=== PATIENT | female | born 1990 | race Caucasian/White ===

== ENCOUNTER 2019-08-07 18:13 | Emergency (ER) | payer MEDICAID, SELFPAY ==
[2019-08-07 18:43] VITALS: BP 115/81; PULSE 90; RESP 16; TEMP 36.7; O2SAT 99; BMI 32.1
--- NOTE | 2019-08-07 21:01 | ED_ITS ---
Entered by Molly Bangura, acting as scribe for Mike Daigle MD Aug 07, 2019 18:13 HPI - Dental/Oral General: Chief complaint: Dental/Oral Stated complaint: dental pain Time Seen by Provider: 08/07/19 20:48 Source: patient and family Mode of arrival: ambulatory History of Present Illness: HPI Narrative: 29 y/o female presents to the ED with complaint of dental pain. Pt states this is a chronic issue and she has not seen a dentist. She has pain that radiates into her right jaw and makes it difficult for her to smoke. Complaint: tooth pain Duration: constant Severity: moderate Relieving factors: nothing Exacerbating factors: chewing Context: history of dental caries Associated symptoms: Denies fever(s) Treatment prior to arrival: none Review of Systems Const: Denies: fever, chills, body aches or change in appetite Eyes: Denies: blurry vision or eye discomfort ENMT: Reports: dental pain (Right lower); Denies: throat pain Card: Denies: chest pain Resp: Denies: shortness of breath GI: Denies: abdominal pain, nausea, vomiting or diarrhea : Denies: painful urination Musc: Denies: neck pain or back pain Skin/Breast: Denies: rash Neuro: Denies: headache Psych: Denies: depression Mil/Lymph: Denies: easy bruising All/Imm: Denies: hives PFSH ED PFSH: Statuses (acute, chronic, etc) shown below reflect problem list status as previously entered and may not be historically accurate Social History Smoking and tobacco status: current every day smoker Physical Exam Const: COMMON NORMALS: oriented x3 and alert HENMT: COMMON NORMALS: normocephalic and head/scalp atraumatic HEAD & SCALP: normocephalic and atraumatic MOUTH: other (dental pain/tenderness) Eye: COMMON NORMALS: PERRL and EOMs intact bilaterally PUPIL: Yes PERRL Neck/C-Spine: COMMON NORMALS: full ROM and supple Chest: COMMONS NORMALS: inspection of chest normal and palpation of chest normal Resp: COMMON NORMALS: normal respiratory effort, no retractions, no use of accessory muscles and clear to auscultation bilaterally AUSCULTATION: clear to auscultation bilaterally Cardio: COMMON NORMALS: regular rate, regular rhythm and no murmurs RATE: regular rate RHYTHM: regular rhythm GI: COMMON NORMALS: normal to inspection, nondistended, normoactive bowel sounds, soft to palpation, non-tender and no masses PALPATION: Yes soft Extremity: COMMON NORMALS: normal to inspection and full ROM Neuro: COMMON NORMALS: oriented x3, moves all extremities and no focal motor deficits SENSORIUM/ORIENTATION: Yes alert Psych: COMMON NORMALS: mental status grossly normal, thought process normal and cooperative THOUGHT PROCESS: normal thought process Skin: COMMON NORMALS: no rashes or lesions noted and no wounds GENERAL SKIN EXAM: no rashes or lesions noted Course Vital Signs: Vital signs: Vital Signs Temperature 98.9 F 08/07/19 21:54 Pulse Rate 82 08/07/19 21:54 Respiratory Rate 18 08/07/19 21:54 Blood Pressure 109/72 08/07/19 21:54 Pulse Oximetry 96 08/07/19 21:54 MDM - Dental/Oral MDM Narrative: Medical decision making narrative: pt presents here with dental pain. she has no signs of trismus or abscess. pt is stable for discharge and will prescribe clindamycin and naprosyn. She is to follow up with a dentist and is to return if worsening. Discharge Plan Discharge Patient Disposition: Home, Self-Care Clinical Impression: Dental caries Condition: Stable Prescriptions: New EC-Naprosyn 500 mg tablet,delayed release (DR/EC) 500 mg PO BID PRN (Reason: pain) Qty: 20 RF: 0 clindamycin HCl 300 mg capsule 300 mg PO TID 10 Days Qty: 30 RF: 0 Discharge Orders: Discharge Order (Routine); Ordered 08/07/19 Ordered By: Mike Daigle Discharge Diet: Advance as tolerated Discharge Activity: Resume usual activity Patient Instructions: Toothache (ED) Coding Level of Care Code ED Emergency Medical Tech for Chg Fwd The documentation recorded by the Willem perrin Ashley, accurately reflects the service I personally performed and the decisions made by Oxana washington Korby, MD Aug 07, 2019 18:13
--- NOTE | 2019-08-07 21:34 | PC.NURSE ---
Introduced self to patient and initiated vital signs. Pt is A&O x 4 and agreeable. Pt states that the reason for the ER visit today is due to dental pain at right side of mouth. eassured patient of needs and will continue to monitor.
[2019-08-07] MEDS: clindamycin 150 mg Capsule 300 MG PO (21:43)
[2019-08-07 21:54] VITALS: BP 109/72; PULSE 82; RESP 18; TEMP 37.2; O2SAT 96
[2019-08-07] MEDS: HYDROcodone-acetaminophen 7.5-325 mg Tablet 1 TAB PO (21:58)
== END 2019-08-07 22:08 | disposition home or self-care (01) ==
PROVIDERS: Emergency Provider Emergency Medicine
DX: K02.9 Dental caries, unspecified (principal); F17.200 Nicotine dependence, unspecified, uncomplicated
CPT/HCPCS: 99281; 99283

== ENCOUNTER → 2019-09-07 17:14 | Outpatient (BNVA) | payer MEDICAID, SELFPAY | PROVIDERS: Visit Provider Nurse Practitioner Family | DX: J11.1 Influenza due to unidentified influenza virus with other respiratory manifestations (principal); B37.3 Candidiasis of vulva and vagina | CPT/HCPCS: 87804 ==

== ENCOUNTER → 2019-09-20 14:00 | Outpatient (BNVA) | payer MEDICAID, SELFPAY | PROVIDERS: Visit Provider Internal Medicine | DX: B19.20 Unspecified viral hepatitis C without hepatic coma (principal); B18.2 Chronic viral hepatitis C | CPT/HCPCS: 82105; 87522 ==

== ENCOUNTER → 2019-09-27 11:00 | Outpatient (BNVA) | payer MEDICAID, SELFPAY | PROVIDERS: PCP Family Medicine; Referring Provider Family Medicine; Visit Provider Specialist | DX: G56.03 Carpal tunnel syndrome, bilateral upper limbs (principal); F17.210 Nicotine dependence, cigarettes, uncomplicated | CPT/HCPCS: 95910 ==

== ENCOUNTER → 2019-10-23 09:15 | Outpatient (BNVA) | payer MEDICAID, SELFPAY | PROVIDERS: PCP Family Medicine; Visit Provider Family Medicine | DX: Z01.419 Encounter for gynecological examination (general) (routine) without abnormal findings (principal); J30.2 Other seasonal allergic rhinitis; F17.219 Nicotine dependence, cigarettes, with unspecified nicotine-induced disorders | CPT/HCPCS: 88175 ==

== ENCOUNTER 2019-11-08 06:34 | Day surgery (SDC) | payer MEDICAID, SELFPAY ==
[2019-11-07 17:21] VITALS: BMI 32.3
[2019-11-08 06:46] VITALS: BP 125/77; PULSE 91; RESP 18; TEMP 36.4; O2SAT 99
--- NOTE | 2019-11-08 06:53 | W.PM.OPSUD ---
Surgery/Procedure H&P Update DATE OF PROCEDURE: November 08, 2019 DATE H&P PERFORMED: 10/31/19 H&P UPDATE INFORMATION: I have reviewed H&P completed within last 30 days, I have examined patient prior to procedure and No changes to prior documentation PREOP DIAGNOSIS: right carpal tunnel syndrome PRIMARY INDICATION FOR PROCEDURE: as above PLANNED PROCEDURE: Operation Date: 11/08/19 08:10 Proposed Procedures p Right Carpal Tunnel Release, carpal tunnel syndrome 02390/G56.03(Right) - Kadeem Ham DO
--- NOTE | 2019-11-08 06:54 | PM.OP ---
Operative Report Date of procedure: November 08, 2019 Pre-op Diagnosis: right carpal tunnel syndrome Post-op diagnosis: same Procedure Done: Right carpal tunnel release Pathology: none sent Surgeon: Kadeem Ham Anesthesia: MAC and Local Estimated blood loss (mL): 2 Tourniquet time (min): 17 (at 250 mmHg) Complications: No apparent complications Findings: Tight right carpal tunnel Condition: stable Disposition: same day Brief History: 29-year-old white female with symptoms of right carpal tunnel syndrome. Physical exam and electrodiagnostic studies support this diagnosis. Risks, benefits potential complications of carpal tunnel surgery discussed with patient. Risks include aren't limited to failure to relieve all symptoms, possible recurrence, nerve/blood vessel/tendon injury, wound healing complications. All questions answered patient agreeable to proceed with surgery. Procedure: 900 mg Clindamycin Patient identified. Surgical site is signed. Surgical permit signed. Patient received 900 mg of Clindamycin IV for surgical prophylaxis. Patient was taken to the Operating Room. Patient was transferred to the Operating Room table. Patient was placed supine on the OR table. Patient received intravenous sedation. A tourniquet was placed about the upper aspect of the operative limb. Patient was then sterilely prepped and draped in usual fashion. Time out was performed. The area of surgery of the right hand was injected with 10 cc of a 1:1 mixture of 1% lidocaine with epinephrine and 0.25% Marcaine The upper extremity was exsanguinated using an Esmarch bandage and the tourniquet was inflated to 250 mm of Hg pressure. A 4cm palmar incision was made with a #15 blade. Dissection carried down through skin and subcutaneous tissue. We incised the transverse carpal ligament. The transverse carpal ligament was undermined proximally. The wrist was extended and then using a pushing scissors technique, the proximal extent of the transverse carpal ligament was divided. We verified the release was complete. Using scissors technique dissection, we released the distal extent of the transverse carpal ligament and the deep layer of the palmar fascia to the level of the superficial palmar arch. The median nerve was identified as well as the recurrent branch that was preserved. No other pathology noted in the carpal tunnel. Once again, we verified the release was complete. The wound was irrigated with sterile saline containing Betadine and sterile saline containing antibiotic solution. Skin closure was performed with interrupted sutures of 4-0 nylon. Antibiotic ointment was applied to the surgical incision. Sterile dressings were applied. The tourniquet was deflated. A volar plaster splint was applied with an Yury overwrap. The patient was aroused from sedation. Patient was taken to the outpatient surgery area. Patient tolerated the surgery well. All counts were correct.
--- NOTE | 2019-11-08 07:01 | ANES.PREANE2 ---
Pre-Anesthetic Assessment Pre-Anesthetic Assessment: Height/Weight: Height 1.55 m Weight 77.564 kg Temp Pulse Resp BP Pulse Ox 97.5 F L 91 18 125/77 99 11/08/19 06:46 11/08/19 06:46 11/08/19 06:46 11/08/19 06:46 11/08/19 06:46 Preop Diagnosis: right carpal tunnel syndrome Proposed Procedure: Operation Date: 11/08/19 08:10 Proposed Procedures p Right Carpal Tunnel Release, carpal tunnel syndrome 31235/G56.03(Right) - Kadeem Hma, DO Was Beta Ema taken within 24 hours: N/A Last intake: Intake Last Liquid Date 11/07/19 Last Liquid Time 23:59 Last Solid Date 11/07/19 Last Solid Time 23:55 Social: Social History: Tobacco and No alcohol Exam: Pre-Anes Outpt Exam: alert, oriented x 3, clear to auscultation bilaterally and regular rate & rhythm Airway: Submandibular: WNL Cervical ROM: WNL MP: 2 History/ROS: No significant history except as noted Pulmonary: Pulmonary: COPD CV/HEM: Comments: hep C Hepatic: Hepatic: Hepatitis Anesthetic Plan: ASA status: 3 Anesthesia: Anesthesia Evaluation and MAC Risk of > 500 ml blood loss (7ml/kg in children): Yes, adequate IV access and fluids planned PFSH Anesthesia PFSH: Social History Smoking and tobacco status: current every day smoker cigarettes Packs smoked per day: 1 Alcohol intake: former History of recent travel: No Data Anesthesia Cardiac Studies: No Data to Display
[2019-11-08] MEDS: sodium chloride 0.9% 1,000 ML 30 ML IV (07:20)
[2019-11-08] MEDS: clindamycin 900 MG/50 ML PREMIX 100 MG IV (08:04)
[2019-11-08] MEDS: neomycin-poly-bacitracin oint 28 gm 1 APPLIC TOPICAL (08:34)
[2019-11-08 08:46] VITALS: BP 119/72; PULSE 84; RESP 16; TEMP 36.2; O2SAT 99
[2019-11-08 09:01] VITALS: BP 109/61; PULSE 77; RESP 16; TEMP 36.4; O2SAT 99
== END 2019-11-08 09:20 | disposition home or self-care (01) ==
PROVIDERS: PCP Family Medicine; Visit Provider Orthopaedic Surgery
PROC: (CPT 64721; principal; 2019-11-08 08:00)
DX: G56.01 Carpal tunnel syndrome, right upper limb (principal); J44.9 Chronic obstructive pulmonary disease, unspecified; B19.20 Unspecified viral hepatitis C without hepatic coma; F17.210 Nicotine dependence, cigarettes, uncomplicated
CPT/HCPCS: 64721; 12345; J1580; J2001; J2250; J2704; J3010; J3490; J7030

== ENCOUNTER → 2019-11-22 11:00 | Outpatient (BNVA) | payer MEDICAID, SELFPAY | PROVIDERS: PCP Family Medicine; Visit Provider Internal Medicine | DX: B18.2 Chronic viral hepatitis C (principal) | CPT/HCPCS: 87522 ==

== ENCOUNTER 2019-12-14 09:57 | Day surgery (SDC) | payer MEDICAID, SELFPAY ==
[2019-12-13 17:19] VITALS: BMI 33.2
[2019-12-14 10:19] VITALS: BP 115/65; PULSE 79; RESP 18; TEMP 36.8; O2SAT 97
[2019-12-14] MEDS: sodium chloride 0.9% 1,000 ML 30 ML IV (10:29)
--- NOTE | 2019-12-14 10:34 | P.ANESASSM_ITS ---
Pre-Anesthetic Assessment Pre-Anesthetic Assessment: Height/Weight: Height 1.55 m Weight 79.832 kg Temp Pulse Resp BP Pulse Ox 98.3 F 79 18 115/65 97 12/14/19 10:19 12/14/19 10:19 12/14/19 10:19 12/14/19 10:19 12/14/19 10:19 Preop Diagnosis: Left carpal tunnel syndrome Proposed Procedure: Operation Date: 12/14/19 11:35 Proposed Procedures p Carpal Tunnel Release 02349 G56.02(Left) - Kadeem Ham DO Familial anesthetic complications: None Was Beta Ema taken within 24 gautam rs: N/A Last intake: Intake Last Liquid Date 12/13/19 Last Liquid Time 23:59 Last Solid Date 12/13/19 Last Solid Time 23:59 Social: Social History: Tobacco, No alcohol and No tobacco Comment: on suboxone for pain pill addiction - Still on suboxone Exam: Pre-Anes Outpt Exam: alert, oriented x 3, clear to auscultation bilaterally and regular rate & rhythm Airway: Cervical ROM: WNL MP: 3 Dentition: Full Pulmonary: Pulmonary: COPD CV/HEM: CV/HEM: None reported : : None reported Comments: hx ARF last year probably due to drug use Hepatic: Hepatic: Hepatitis (Hep C took epclusa) GI: GI: None reported Metabolic: Metabolic: None reported Musc/skel: Musc/skel: None reported Neuropsych: Neuropsych: Neuropathy and Seizure (Not on medications - last episodes 1.5 years ago (unknown etiology)) Comments: induced by strobe lights Anesthetic Plan: ASA status: 2 Anesthesia: MAC and Regional (specify below) Other: francine Risk of > 500 ml blood loss (7ml/kg in children): No Meds/Allergies Current Medications: Current Medications Generic Name Dose Route Start Last Admin Trade Name Freq PRN Reason Stop Dose Admin Sodium Chloride 1,000 mls @ 30 ml s/hr 12/14/19 10:15 12/14/19 10:29 Sodium Chloride 0.9% IV 12/15/19 10:14 30 mls/hr .Q24H NIC Administration PFSH Anesthesia PFSH: Medical History COPD (chronic obstructive pulmonary disease) Fibromyalgia Hepatitis C Seizures Surgical History H/O section H/O tubal ligation H/O: hysterectomy due to cervical / uterine / ovarian cancer History of appendectomy History of cholecystectomy Family History Other Hypertension Seizure disorder Thyroid condition Social History Smoking and tobacco status: current every day smoker cigarettes Packs smoked per day: 1 Alcohol intake: former History of recent travel: No Data Anesthesia Cardiac Studies: No Data to Display
--- NOTE | 2019-12-14 11:25 | W.PM.OPSUD ---
Surgery/Procedure H&P Update DATE OF PROCEDURE: December 14, 2019 DATE H&P PERFORMED: 12/10/19 H&P UPDATE INFORMATION: I have reviewed H&P completed within last 30 days, I have examined patient prior to procedure and No changes to prior documentation PREOP DIAGNOSIS: Left carpal tunnel syndrome PRIMARY INDICATION FOR PROCEDURE: as above PLANNED PROCEDURE: Operation Date: 12/14/19 11:35 Proposed Procedures p Carpal Tunnel Release 26947 G56.02(Left) - Kadeem Ham DO
--- NOTE | 2019-12-14 11:25 | PM.OP ---
Operative Report Date of procedure: December 14, 2019 Pre-op Diagnosis: Left carpal tunnel syndrome Post-op diagnosis: same Procedure Done: left carpal tunnel release Pathology: none sent Surgeon: Kadeem Ham Anesthesia: MAC and Local Estimated blood loss (mL): 2 Tourniquet time (min): 16 Tourniquet time: 250 mmHg pressure Complications: no apparent complications Findings: tight left carpal tunel Brief History: 29-year-old white female with complaints of paresthesias in the median nerve distribution of the left upper extremity with wrist pain. Physical examination and electrodiagnostic studies are consistent with carpal tunnel syndrome. Patient has failed conservative treatment. Risks, benefits and potential complications of carpal tunnel surgery discussed the patient. Risks of surgery include but aren't limited to: Failure to relieve all symptoms, infection, nerve/blood vessel/tendon injury. Medical complications can include blood clots, heart attack, stroke, and risks up to and including . All questions were answered patient agreeable to proceed with surgery. Procedure: clindamycin 600 mg IV Patient identified. Surgical site is signed. Surgical permit signed. Patient received 600 mg of Clindamycin IV for surgical prophylaxis. Patient was taken to the Operating Room. Patient was transferred to the Operating Room table. Patient was placed supine on the OR table. Patient received intravenous sedation. Time out was performed. The area of surgery of the left hand was injected with 10 cc of a 1:1 mixture of 1% lidocaine with epinephrine and 0.5% Marcaine. A tourniquet was placed about the upper aspect of the operative limb. Patient was then sterilely prepped and draped in usual fashion. The upper extremity was exsanguinated using an Esmarch bandage and the tourniquet was inflated to 250 mm of Hg pressure. A 4cm palmar incision was made with a #15 blade. Dissection carried down through skin and subcutaneous tissue. We incised the transverse carpal ligament. The transverse carpal ligament was undermined proximally. The wrist was extended and then using a pushing scissors technique, the proximal extent of the transverse carpal ligament was divided. We verified the release was complete. Using scissors technique dissection, we released the distal extent of the transverse carpal ligament and the deep layer of the palmar fascia to the level of the superficial palmar arch. The median nerve was identified as well as the recurrent branch that was preserved. No other pathology noted in the carpal tunnel. Once again, we verified the release was complete. The wound was irrigated with sterile saline containing Betadine and sterile saline containing antibiotic solution. Skin closure was performed with interrupted sutures of 4-0 nylon. Antibiotic ointment was applied to the surgical incision. Sterile dressings were applied. The tourniquet was deflated. A volar plaster splint was applied with an Yury overwrap. The patient was aroused from sedation. Patient was taken to the outpatient surgery area. Patient tolerated the surgery well. All counts were correct.
[2019-12-14] MEDS: cefUROXime 1,500 MG in sodium chloride 0.9% (plus) 50 ML 100 MG IV (11:36)
[2019-12-14] MEDS: neomycin-poly-bacitracin oint 28 gm 1 APPLIC TOPICAL (12:13)
[2019-12-14 12:29] VITALS: BP 106/75; PULSE 88; RESP 16; TEMP 36.1; O2SAT 100
[2019-12-14 13:02] VITALS: BP 110/74; PULSE 74; RESP 18; TEMP 36.3; O2SAT 100
== END 2019-12-14 13:10 | disposition home or self-care (01) ==
PROVIDERS: PCP Family Medicine; Visit Provider Orthopaedic Surgery
PROC: (CPT 64721; principal; 2019-12-14 11:35)
DX: G56.02 Carpal tunnel syndrome, left upper limb (principal); J44.9 Chronic obstructive pulmonary disease, unspecified; Z86.19 Personal history of other infectious and parasitic diseases; M79.7 Fibromyalgia; F17.210 Nicotine dependence, cigarettes, uncomplicated
CPT/HCPCS: 64721; 12345; J0697; J1580; J2001; J2704; J3010; J3490; J7030

== ENCOUNTER 2020-04-21 20:00 | Outpatient (CLI) | payer MEDICAID, SELFPAY | END 2020-04-21 20:01 | disposition home or self-care (01) | LOC: SLEEP 04-22 09:10 | PROVIDERS: PCP Family Medicine; Visit Provider Nurse Practitioner Family | DX: G47.10 Hypersomnia, unspecified (principal) | CPT/HCPCS: 95810 ==

== ENCOUNTER → 2020-05-16 18:54 | Outpatient (BNVA) | payer MEDICAID, SELFPAY | PROVIDERS: PCP Family Medicine; Visit Provider Emergency Medicine | DX: J02.9 Acute pharyngitis, unspecified (principal); R11.0 Nausea | CPT/HCPCS: 87071; 87880 ==

== ENCOUNTER 2020-06-07 15:48 | Inpatient (IN) | payer MEDICAID, SELFPAY ==
[2020-06-07] VITALS (8 sets, daily range): BP systolic 109–132; BP diastolic 65–91; PULSE 84–108; RESP 18–20; TEMP 36.9–37.2; O2SAT 94–100; BMI 34.0
--- NOTE | 2020-06-07 17:17 | W.ED.FEMALGU ---
Documented by User: Cj Sotelo DO 06/08/20 06:19 HPI - Female Genitourinary General: Chief complaint: Urogenital-Female Stated complaint: mid back pain Time Seen by Provider: 06/07/20 16:49 History of Present Illness: HPI Narrative: 29-year-old female comes complaining of bilateral flank pain for the last week. She has had temp at home up to 100.43 for which she is taken several doses of Tylenol today. She has had nausea and vomiting along with a fever she denies any hematuria. She is previously a hysterectomy no potential that she is . She denies history of renal stones but has had a history of previous pyelonephritis and has chronic kidney disease. He reports having a previous hospitalization for acute kidney disease. She was hospitalized for approximately 3 weeks MD elicited complaint: dysuria, UTI and flank pain Pertinent past history: recurrent UTIs and pyelonephritis Onset (ago): week(s) (1) Severity: severe Female Urogenital Radiation: L Flank and R Flank Severity scale (1-10): 10 Quality of pain: cramping and sharp Consistency: intermittent Vaginal discharge: none Vaginal bleeding: none Urinary symptoms: Flank Pain Exacerbating factors: movement and palpation Relieving factors: none Associated symptoms: Reports abdominal pain and fevers/chills; Deny short of breath, headache(s), nausea, rash, seizures, syncope, vaginal bleeding, vaginal discharge or weakness Treatment prior to arrival: acetaminophen Review of Systems Const: Reports: fever(s), chills, body aches and fatigue; Denies: change in appetite or malaise ENMT: Denies: throat pain, ear or mastoid pain, nasal discharge or nasal congestion Card: Denies: syncope Resp: Denies: dyspnea, productive cough or non-productive cough GI: Reports: abdominal pain; Denies: nausea : Reports: flank pain and dysuria; Denies: vaginal discharge Skin/Breast: Denies: rash or pruritus Neuro: Denies: headache(s) [facility], [facility] PFSH: Medical History (Updated 06/08/20 @ 01:05 by Gerardo Rico MD) COPD (chronic obstructive pulmonary disease) Fibromyalgia Hepatitis C Seizures Surgical History H/O section H/O tubal ligation H/O: hysterectomy due to cervical / uterine / ovarian cancer History of appendectomy History of cholecystectomy S/p bilateral carpal tunnel release Family History Other Hypertension Seizure disorder Thyroid condition Social History Smoking and tobacco status: current every day smoker cigarettes Packs smoked per day: 1 Alcohol intake: former History of recent travel: No Physical Exam Const: COMMON NORMALS: no acute distress GENERAL APPEARANCE: cooperative and comfortable ORIENTATION/CONSCIOUSNESS: Yes awake, Yes oriented to person, Yes oriented to place and Yes oriented to time HENMT: COMMON NORMALS: normocephalic, atraumatic and hearing grossly normal bilaterally HEAD & SCALP: normocephalic and atraumatic Neck/C-Spine: COMMON NORMALS: no JVD Resp: COMMON NORMALS: normal respiratory effort, No retractions, No use of accessory muscles and clear to auscultation bilaterally AUSCULTATION: clear to auscultation bilaterally Cardio: COMMON NORMALS: no JVD, regular rate, regular rhythm and No murmurs present (Cardio) RATE: regular rate RHYTHM: regular rhythm GI: COMMON NORMALS: Soft to palpation and No hepatosplenomegaly present AUSCULTATION: Yes normoactive bowel sounds PALPATION: Yes Soft to palpation, No Tenderness to palpation present (GI), No Guarding due to palpation present (GI) and Yes No hepatosplenomegaly present : BLADDER/KIDNEY EXAM: Yes CVA tenderness (10/10) SPECULUM EXAM - VAGINA: No vaginal bleeding OB/EXTERNAL & SPECULUM: No vaginal bleeding Back/Pelvis: GENERAL BACK: Yes CVA tenderness (10/10) CVA tenderness: bilateral Extremity: COMMON NORMALS: normal to inspection, capillary refill normal, no clubbing, cyanosis or edema, no calf tenderness and no pedal edema Neuro: SENSORIUM/ORIENTATION: Yes oriented to person, Yes oriented to place and Yes oriented to time Skin: COMMON NORMALS: no rashes or lesions noted GENERAL SKIN EXAM: no rashes or lesions noted Course Vital Signs: Vital signs: Vital Signs Temperature 98.2 F 06/08/20 04:00 Pulse Rate 91 06/08/20 04:00 Respiratory Rate 20 H 06/08/20 04:57 Blood Pressure 106/66 06/08/20 04:00 Pulse Oximetry 94 06/08/20 04:00 MDM - Female MDM Narrative: Medical decision making narrative: Care turned over to Dr. Ansari at change of shift. See his note for final diagnosis and disposition Lab Data: Labs: Lab Results 06/07/20 06/07/20 06/07/20 Range/Units 16:58 17:16 18:55 WBC (4.0-10.0) 10^3/ uL RBC (4.1-5.3) 10^6/u L Hgb (11.5-15.3) g/dL Hct (37.0-47.0) % MCV (81-99) fL MCH (28.0-34.0) pg MCHC (30.0-36.0) g/dL RDW (12.1-15.1) % Plt Count (130-400) 10^3/c mm MPV (7.4-10.4) fL Neut % (Auto) % Lymph % (Auto) % [place] % (Auto) % Eos % (Auto) % Baso % (Auto) % Neut # (Auto) (1.8-7.7) 10^3/u L Lymph # (Auto) (0.8-4.8) 10^3/u L [place] # (Auto) (0.2-0.9) 10^3/u L Eos # (Auto) (0.0-0.8) 10^3/u L Baso # (Auto) (0.0-0.1) 10^3/u L Nucleated RBC % (a uto) % Nucleated RBCs # /100WBC Sodium 135 L (136-145) mmol/L Potassium 3.7 (3.5-5.1) mmol/L Chloride 101 (98-107) mmol/L Carbon Dioxide 25 (22-29) mmol/L Anion Gap 12.7 (5-19) BUN 7 (6-20) mg/dL Creatinine 0.7 (0.5-0.9) mg/dL GFR Calculation 98.9 (90-130) mL/min Glucose 107 (65-115) mg/dL Calculated Osmolal ity 278 L (285-295) mOsm/k g Lactic Acid 0.7 (0.5-2.2) mmol/L Calcium 8.7 (8.5-10.5) mg/dL Total Bilirubin 0.4 (0.15-1.2) mg/dL AST 13 (0-32) U/L ALT 8 (0-33) U/L Alkaline Phosphata se 83 (35-105) IU/L Total Protein 7.1 (6.6-8.7) g/dL Albumin 4.5 (3.5-5.2) g/dL Globulin 2.6 (1.3-4.6) g/dL Urine Color Straw (Yellow) Urine Appearance Hazy A (CLEAR) Urine pH 8 H (5-7) Ur Specific Gravit y 1.010 (1.005-1.030) Urine Protein Neg (Negative) Urine Glucose (UA) Norm (Normal) Urine Ketones Negative (Negative) Urine Blood Trace H (Negative) Urine Nitrate Negative (Negative) Urine Bilirubin Neg (Negative) Urine Urobilinogen Norm (Negative) mg/dL Ur Leukocyte Alyssa ase 2+ H (Negative) Urine RBC 0-4 H (0-2) /hpf Urine WBC 40-55 H (0-5) /hpf Ur Squamous Epith Cells 0-4 H (0-5) /hpf Amorphous Sediment Not Reportable Urine Bacteria 2+ H (NONE) /hpf 06/07/20 Range/Units 18:55 WBC 16.3 H (4.0-10.0) 10^3/ uL RBC 4.30 (4.1-5.3) 10^6/u L Hgb 13.3 (11.5-15.3) g/dL Hct 38.8 (37.0-47.0) % MCV 90.2 (81-99) fL MCH 30.9 (28.0-34.0) pg MCHC 34.3 (30.0-36.0) g/dL RDW 12.0 L (12.1-15.1) % Plt Count 219 (130-400) 10^3/c mm MPV 10.1 (7.4-10.4) fL Neut % (Auto) 69.6 % Lymph % (Auto) 20.0 % Medina % (Auto) 9.1 % Eos % (Auto) 0.6 % Baso % (Auto) 0.1 % Neut # (Auto) 11.32 H (1.8-7.7) 10^3/u L Lymph # (Auto) 3.3 (0.8-4.8) 10^3/u L Medina # (Auto) 1.5 H (0.2-0.9) 10^3/u L Eos # (Auto) 0.1 (0.0-0.8) 10^3/u L Baso # (Auto) 0.0 (0.0-0.1) 10^3/u L Nucleated RBC % (a uto) 0 % Nucleated RBCs # 0.0 /100WBC Sodium (136-145) mmol/L Potassium (3.5-5.1) mmol/L Chloride (98-107) mmol/L Carbon Dioxide (22-29) mmol/L Anion Gap (5-19) BUN (6-20) mg/dL Creatinine (0.5-0.9) mg/dL GFR Calculation (90-130) mL/min Glucose (65-115) mg/dL Calculated Osmolal ity (285-295) mOsm/k g Lactic Acid (0.5-2.2) mmol/L Calcium (8.5-10.5) mg/dL Total Bilirubin (0.15-1.2) mg/dL AST (0-32) U/L ALT (0-33) U/L Alkaline Phosphata se (35-105) IU/L Total Protein (6.6-8.7) g/dL Albumin (3.5-5.2) g/dL Globulin (1.3-4.6) g/dL Urine Color (Yellow) Urine Appearance (CLEAR) Urine pH (5-7) Ur Specific Gravit y (1.005-1.030) Urine Protein (Negative) Urine Glucose (UA) (Normal) Urine Ketones (Negative) Urine Blood (Negative) Urine Nitrate (Negative) Urine Bilirubin (Negative) Urine Urobilinogen (Negative) mg/dL Ur Leukocyte Alyssa ase (Negative) Urine RBC (0-2) /hpf Urine WBC (0-5) /hpf Ur Squamous Epith Cells (0-5) /hpf Amorphous Sediment Urine Bacteria (NONE) /hpf Discharge Plan Discharge Patient Disposition: Placed in Observation Admit Provider: Gerardo Rico Clinical Impression: Pyelonephritis Vomiting Qualifiers: Vomiting type: unspecified Vomiting Intractability: unspecified Nausea presence: with nausea Qualified Code(s): R11.2 - Nausea with vomiting, unspecified Coding Level of Care Code ED Termite Control Technician for Chg Fwd Exam Comprehensive Documented by User: Matti Ansari DO 06/07/20 20:57 HPI - Female Genitourinary General: Chief complaint: Urogenital-Female Stated complaint: mid back pain Time Seen by Provider: 06/07/20 16:49 PFSH ED PFSH: Medical History (Updated 06/08/20 @ 01:05 by Gerardo Rico MD) COPD (chronic obstructive pulmonary disease) Fibromyalgia Hepatitis C Seizures Surgical History H/O section H/O tubal ligation H/O: hysterectomy due to cervical / uterine / ovarian cancer History of appendectomy History of cholecystectomy S/p bilateral carpal tunnel release Family History Other Hypertension Seizure disorder Thyroid condition Social History Smoking and tobacco status: current every day smoker cigarettes Packs smoked per day: 1 Alcohol intake: former History of recent travel: No Course Vital Signs: Vital signs: Vital Signs Temperature 98.2 F 06/08/20 04:00 Pulse Rate 91 06/08/20 04:00 Respiratory Rate 20 H 06/08/20 04:57 Blood Pressure 106/66 06/08/20 04:00 Pulse Oximetry 94 06/08/20 04:00 MDM - Female MDM Narrative: Medical decision making narrative: 29-year-old female checked out to me by Dr. Sotelo at shift change. This lady has a previous history of pyelonephritis causing renal failure, and an ICU stay. She presents with fever, bilateral flank pain, and some dysuria. She has a urinary tract infection by urinalysis. Her white blood cell count is 16.3. Her creatinine is 0.7 today. Renal ultrasound is normal showing no hydronephrosis or evidence of significant pyelonephritic change, or abscess she will be observed given the fact that she is vomiting and may not hold on antibiotics at home. Lab Data: Labs: Lab Results 06/07/20 06/07/20 06/07/20 Range/Units 16:58 17:16 18:55 WBC (4.0-10.0) 10^3/ uL RBC (4.1-5.3) 10^6/u L Hgb (11.5-15.3) g/dL Hct (37.0-47.0) % MCV (81-99) fL MCH (28.0-34.0) pg MCHC (30.0-36.0) g/dL RDW (12.1-15.1) % Plt Count (130-400) 10^3/c mm MPV (7.4-10.4) fL Neut % (Auto) % Lymph % (Auto) % [place] % (Auto) % Eos % (Auto) % Baso % (Auto) % Neut # (Auto) (1.8-7.7) 10^3/u L Lymph # (Auto) (0.8-4.8) 10^3/u L [place] # (Auto) (0.2-0.9) 10^3/u L Eos # (Auto) (0.0-0.8) 10^3/u L Baso # (Auto) (0.0-0.1) 10^3/u L Nucleated RBC % (a uto) % Nucleated RBCs # /100WBC Sodium 135 L (136-145) mmol/L Potassium 3.7 (3.5-5.1) mmol/L Chloride 101 (98-107) mmol/L Carbon Dioxide 25 (22-29) mmol/L Anion Gap 12.7 (5-19) BUN 7 (6-20) mg/dL Creatinine 0.7 (0.5-0.9) mg/dL GFR Calculation 98.9 (90-130) mL/min Glucose 107 (65-115) mg/dL Calculated Osmolal ity 278 L (285-295) mOsm/k g Lactic Acid 0.7 (0.5-2.2) mmol/L Calcium 8.7 (8.5-10.5) mg/dL Total Bilirubin 0.4 (0.15-1.2) mg/dL AST 13 (0-32) U/L ALT 8 (0-33) U/L Alkaline Phosphata se 83 (35-105) IU/L Total Protein 7.1 (6.6-8.7) g/dL Albumin 4.5 (3.5-5.2) g/dL Globulin 2.6 (1.3-4.6) g/dL Urine Color Straw (Yellow) Urine Appearance Hazy A (CLEAR) Urine pH 8 H (5-7) Ur Specific Gravit y 1.010 (1.005-1.030) Urine Protein Neg (Negative) Urine Glucose (UA) Norm (Normal) Urine Ketones Negative (Negative) Urine Blood Trace H (Negative) Urine Nitrate Negative (Negative) Urine Bilirubin Neg (Negative) Urine Urobilinogen Norm (Negative) mg/dL Ur Leukocyte Alyssa ase 2+ H (Negative) Urine RBC 0-4 H (0-2) /hpf Urine WBC 40-55 H (0-5) /hpf Ur Squamous Epith Cells 0-4 H (0-5) /hpf Amorphous Sediment Not Reportable Urine Bacteria 2+ H (NONE) /hpf 06/07/ Range/Units 18:55 WBC 16.3 H (4.0-10.0) 10^3/ uL RBC 4.30 (4.1-5.3) 10^6/u L Hgb 13.3 (11.5-15.3) g/dL Hct 38.8 (37.0-47.0) % MCV 90.2 (81-99) fL MCH 30.9 (28.0-34.0) pg MCHC 34.3 (30.0-36.0) g/dL RDW 12.0 L (12.1-15.1) % Plt Count 219 (130-400) 10^3/c mm MPV 10.1 (7.4-10.4) fL Neut % (Auto) 69.6 % Lymph % (Auto) 20.0 % [place] % (Auto) 9.1 % Eos % (Auto) 0.6 % Baso % (Auto) 0.1 % Neut # (Auto) 11.32 H (1.8-7.7) 10^3/u L Lymph # (Auto) 3.3 (0.8-4.8) 10^3/u L Medina # (Auto) 1.5 H (0.2-0.9) 10^3/u L Eos # (Auto) 0.1 (0.0-0.8) 10^3/u L Baso # (Auto) 0.0 (0.0-0.1) 10^3/u L Nucleated RBC % (a uto) 0 % Nucleated RBCs # 0.0 /100WBC Sodium (136-145) mmol/L Potassium (3.5-5.1) mmol/L Chloride (98-107) mmol/L Carbon Dioxide (22-29) mmol/L Anion Gap (5-19) BUN (6-20) mg/dL Creatinine (0.5-0.9) mg/dL GFR Calculation (90-130) mL/min Glucose (65-115) mg/dL Calculated Osmolal ity (285-295) mOsm/k g Lactic Acid (0.5-2.2) mmol/L Calcium (8.5-10.5) mg/dL Total Bilirubin (0.15-1.2) mg/dL AST (0-32) U/L ALT (0-33) U/L Alkaline Phosphata se (35-105) IU/L Total Protein (6.6-8.7) g/dL Albumin (3.5-5.2) g/dL Globulin (1.3-4.6) g/dL Urine Color (Yellow) Urine Appearance (CLEAR) Urine pH (5-7) Ur Specific Gravit y (1.005-1.030) Urine Protein (Negative) Urine Glucose (UA) (Normal) Urine Ketones (Negative) Urine Blood (Negative) Urine Nitrate (Negative) Urine Bilirubin (Negative) Urine Urobilinogen (Negative) mg/dL Ur Leukocyte Alyssa ase (Negative) Urine RBC (0-2) /hpf Urine WBC (0-5) /hpf Ur Squamous Epith Cells (0-5) /hpf Amorphous Sediment Urine Bacteria (NONE) /hpf Discharge Plan Discharge Patient Disposition: Placed in Observation Admit Provider: Gerardo Rico Clinical Impression: Pyelonephritis Vomiting Qualifiers: Vomiting type: unspecified Vomiting Intractability: unspecified Nausea presence: with nausea Qualified Code(s): R11.2 - Nausea with vomiting, unspecified Coding Level of Care Code ED Termite Control Technician for Chg Fwd Exam Comprehensive
[2020-06-07 17:39] LABS: Add Urine Culture? Yes; Add Urine Microscopic? YES; Bacteria Urine 2+ /hpf; Bilirubin Urine Neg (Negative); Blood Urine Trace (Negative); Glucose Urine UA Norm (Normal); Ketones Urine Negative (Negative); Leukocyte Esterase Urine 2+ (Negative); Nitrate Urine Negative (Negative); Protein Urine Neg (Negative); RBC Urine 0-4 /hpf (0-2); Squamous Epithelial Cell Urine 0-4 /hpf (0-5); Urine Appearance Hazy (CLEAR); Urine Color Straw (Yellow); Urobilinogen Urine Norm (Negative); WBC Urine 40-55 /hpf (0-5); pH Urine 8 (5-7)
--- NOTE | 2020-06-07 18:30 | USR_ITS ---
PROCEDURE INFORMATION: Exam: US Retroperitoneal; Complete; Kidneys and Bladder Exam date and time: 06/07/2020 7:36 PM Age: 29 years old Clinical indication: Abdominal pain; Additional info: Pyelonephritis TECHNIQUE: Imaging protocol: Real-time ultrasound of the retroperitoneum with image documentation. Complete exam focused on the kidneys and bladder. COMPARISON: US gall bladder [id number] 09/22/2014 7:32 AM FINDINGS: Right kidney: Normal. No stones. No hydronephrosis. The right kidney measures 11.6 cm in length. The echotexture of the kidney is appropriate. No perinephric fluid. Left kidney: Normal. No stones. No hydronephrosis. The left kidney measures 11.5 cm in length. The echotexture of the kidney is appropriate. No perinephric fluid. Urinary bladder: Unremarkable. US/US renal BI* [id number] IMPRESSION: Unremarkable kidneys and bladder.
[2020-06-07] MEDS: ondansetron 2 mg/ML SDV 2 mL 4 MG IVP (19:04)
[2020-06-07] MEDS: morphine 4 mg/mL SDV 1 mL 6 MG IVP (19:05)
[2020-06-07 19:08] LABS: Basophils % 0.1 %; Eosinophils # 0.1 10^3/uL (0.0-0.8); Eosinophils % 0.6 %; Hematocrit 38.8 % (37.0-47.0); Hemoglobin 13.3 g/dL (11.5-15.3); Lymphocytes # 3.3 10^3/uL (0.8-4.8); Mean Corpuscular HGB Conc 34.3 g/dL (30.0-36.0); Mean Corpuscular Hemoglobin 30.9 pg (28.0-34.0); Mean Corpuscular Volume 90.2 fL (81-99); Mean Platelet Volume 10.1 fL (7.4-10.4); Monocytes # 1.5 10^3/uL (0.2-0.9); Monocytes % 9.1 %; Neutrophils # 11.32 10^3/uL (1.8-7.7); Neutrophils % 69.6 %; Nucleated Red Blood Cells % 0 %; Platelet Count 219 10^3/cmm (130-400); White Blood Count 16.3 10^3/uL (4.0-10.0)
[2020-06-07] MEDS: cefTRIAXone 2,000 MG in sodium chloride 0.9% (plus) 50 ML 100 MG IV (19:12)
[2020-06-07] MEDS: sodium chloride 0.9% 1,000 ML 999 ML IV (19:12)
--- NOTE | 2020-06-07 19:23 | PC.NURSE ---
report from ELGIN Sanon. UA/Lab in process with medication given
[2020-06-07 19:30] LABS: Lactic Sepsis W/Reflex 0.7 mmol/L (0.5-2.2)
[2020-06-07 19:35] LABS: Alanine Aminotransferase 8 U/L (0-33); Albumin Level 4.5 g/dL (3.5-5.2); Alkaline Phosphatase 83 IU/L (35-105); Anion Gap 12.7 (5-19); Aspartate Amino Transferase 13 U/L (0-32); Blood Urea Nitrogen 7 mg/dL (6-20); Calcium 8.7 mg/dL (8.5-10.5); Carbon Dioxide 25 mmol/L (22-29); Chloride 101 mmol/L (98-107); Globulin 2.6 g/dL (1.3-4.6); Glomerular Filtration Rate 98.9 mL/min (90-130); Glucose 107 mg/dL (65-115); Osmolality Calculated 278 mOsm/kg (285-295); Potassium 3.7 mmol/L (3.5-5.1); Sodium 135 mmol/L (136-145); Total Bilirubin 0.4 mg/dL (0.15-1.2); Total Protein 7.1 g/dL (6.6-8.7)
[2020-06-07] MEDS: morphine 4 mg/mL SDV 1 mL IVP ×2 (20:43→23:10)
--- NOTE | 2020-06-07 21:56 | PM.HP ---
Providers/Chief Complaint Admitting Physician: Gerardo Rico MD Primary Care Provider: Jenna Flores DO Chief Complaint: mid back pain History of Present Illness Eleonora White is a 29 year old female with past medical history of renal calculi and complicated with pyelonephritis came in with chief complaint of left flank pain as well nausea and multiple episodes of vomiting along with documented fever at home, several rounds of Tylenol for fever. symptoms are going on for last 3 days.According to her pain as well as nausea and vomiting worsen with movement. She has no urinary complaint. Denies any Shortness of breath, cough, headache, sick contact. Upon arrival in the ER she was worked up for flank pain. Imaging studies: Renal ultrasound : Unremarkable kidneys and bladder. Right kidney: Normal. No stones. No hydronephrosis. The right kidney measures 11.6 cm in length. The echotexture of the kidney is appropriate. No perinephric fluid. Left kidney: Normal. No stones. No hydronephrosis. The left kidney measures 11.5 cm in length. The echotexture of the kidney is appropriate. No perinephric fluid. Urinary bladder: Unremarkable. Pertinent labs: WBC:16.3 H/H : 13/38, Urinalysis: Leukocyte Estrace positive, urine WBC: 40-55 ECA medication: Morphine for pain control, ceftriaxone 2 mg IV x1 dose. Review of Systems Const: Denies: change in appetite or diaphoresis Card: Denies: palpitations, edema, swelling of feet/ankles, dyspnea on exertion, orthopnea or leg pain with exertion Resp: Denies: dyspnea, productive cough, wheezing or pain on inspiration GI: Denies: diarrhea or constipation Musc: Denies: extremity pain or extremity swelling Neuro: Denies: headache(s), difficulty walking or confusion Medications/Allergies Home Medications Medication Instructions Recorded Confirmed Last Taken Type buprenorphine 2 mg-naloxone 0.5 mg See Rx Instructions .ROUTE 09/07/19 06/07/20 06/07/20 History sublingual tablet .COMPLEX tab Allergies Allergy/AdvReac Type Severity Reaction Status Date / Time aspirin Allergy Unknown Verified 05/16/20 18:48 codeine Allergy ALGY-Anaphy Verified 05/16/20 18:48 laxis risperidone [From Risperdal] Allergy ALGY-Anaphy Verified 05/16/20 18:48 laxis tramadol Allergy ALGY-Difficulty Verified 05/16/20 18:48 Swallowing Penicillins AdvReac Mild UNKNOWN Verified 05/16/20 18:48 PFSH Acute PFSH: Medical History (Updated 06/08/20 @ 01:05 by Gerardo Rico MD) COPD (chronic obstructive pulmonary disease) Fibromyalgia Hepatitis C Seizures Surgical History H/O section H/O tubal ligation H/O: hysterectomy due to cervical / uterine / ovarian cancer History of appendectomy History of cholecystectomy S/p bilateral carpal tunnel release Family History Other Hypertension Seizure disorder Thyroid condition Social History Smoking and tobacco status: current every day smoker cigarettes Packs smoked per day: 1 Alcohol intake: former History of recent travel: No Vitals/I&O/Wt Last Vital Signs Temp 98.4 F 06/07/20 21:17 Pulse 100 06/07/20 21:17 Resp 20 H 06/07/20 21:17 BP 132/83 06/07/20 21:17 Pulse Ox 98 06/07/20 21:17 Weight last 48 hrs Weight 81.647 kg Physical Exam Const: COMMON NORMALS: patient oriented x3 HENMT: COMMON NORMALS: normocephalic, atraumatic and hearing grossly normal bilaterally Eye: COMMON NORMALS: no scleral icterus GENERAL EYE: appearance normal, both eyes and all related structures Chest: COMMONS NORMALS: normal inspection of the chest and normal palpation of entire chest wall CHEST: Yes Symmetrical chest wall rise Resp: COMMON NORMALS: normal respiratory effort, No retractions, No use of accessory muscles and clear to auscultation bilaterally EFFORT & INSPECTION: Yes symmetric chest movement AUSCULTATION: clear to auscultation bilaterally Cardio: COMMON NORMALS: regular rate, regular rhythm, S1 normal heart sound present, S2 normal heart sound present, No gallops present (Cardio), No murmurs present (Cardio), No rub (Cardio) and Peripheral pulses 2+ throughout RATE: regular rate RHYTHM: regular rhythm HEART SOUNDS: S1 normal heart sound present and S2 normal heart sound present PERIPHERAL PULSES: Peripheral pulses 2+ throughout GI: COMMON NORMALS: Normal to inspection, nondistended, normoactive bowel sounds present, Soft to palpation, non-tender, No hepatosplenomegaly present and no masses AUSCULTATION: Yes normoactive bowel sounds PALPATION: Yes Soft to palpation and Yes No hepatosplenomegaly present RECTAL EXAM: deferred : OTHER: Lt CVA Tenderness present Extremity: COMMON NORMALS: no clubbing, cyanosis or edema and no pedal edema Neuro: COMMON NORMALS: patient oriented x3 Data : 06/07/20 18:55 06/07/20 17:16 Micro: Microbiology 06/07/20 18:55 Blood Culture - Preliminary Blood SPECIMEN COLLECTED 06/07/20 18:55 Blood Culture - Preliminary Blood SPECIMEN COLLECTED A&P Assessment and plan (1) Acute UTI: Currently started on ceftriaxone 1gm I.V Daily. Pain Control Zofran for nausea and vomitting Status: Acute (2) Nicotine dependence, cigarettes, with unspecified nicotine-induced disorders: On Nicotine patch Status: Chronic (3) S/p bilateral carpal tunnel release: Status: Acute Additional A&P Information DVT PPX:Lovenox 30 mg sc daily Code status :Full code Disposition :Home Attestations Medical Necessity Statement*: Patient needs to be in hospital for the management of UTI. Coding Level of Care Code Acute Family Consumer Science Teacher for Christina Mancia Diagnoses Acute UTI N39.0 Nicotine dependence, cigarettes, with unspecified nicotine-induced disorders F17.219 S/p bilateral carpal tunnel release Z98.890
[2020-06-07] MEDS: enoxaparin 30 mg/0.3 mL Syringe SUBCUT (23:06)
[2020-06-07] MEDS: famotidine 20 mg/2 mL INJ IVP (23:07)
[2020-06-07] MEDS: sodium chloride 0.9% 1,000 ML 75 ML IV (23:07)
[2020-06-07] MEDS: nicotine 21 mg Patch 1 PATCH TRANSDERMA (23:08)
[2020-06-08] VITALS (14 sets, daily range): BP systolic 84–126; BP diastolic 55–83; PULSE 76–100; RESP 16–20; TEMP 36.4–37; O2SAT 94–100
[2020-06-08 05:48] LABS: Basophils % 0.2 %; Eosinophils # 0.2 10^3/uL (0.0-0.8); Eosinophils % 1.1 %; Hematocrit 33.5 % (37.0-47.0); Hemoglobin 11.7 g/dL (11.5-15.3); Lymphocytes # 2.8 10^3/uL (0.8-4.8); Lymphocytes % 20.8 %; Mean Corpuscular HGB Conc 34.9 g/dL (30.0-36.0); Mean Corpuscular Hemoglobin 31.6 pg (28.0-34.0); Mean Corpuscular Volume 90.5 fL (81-99); Mean Platelet Volume 10.4 fL (7.4-10.4); Monocytes # 1.5 10^3/uL (0.2-0.9); Monocytes % 10.7 %; Neutrophils # 9.04 10^3/uL (1.8-7.7); Neutrophils % 66.5 %; Nucleated Red Blood Cells % 0 %; Platelet Count 192 10^3/cmm (130-400); Red Cell Distribution Width 11.9 % (12.1-15.1); White Blood Count 13.6 10^3/uL (4.0-10.0)
[2020-06-08 06:44] LABS: INR 1.11 (0.8-1.2)
[2020-06-08 06:48] LABS: Alanine Aminotransferase 7 U/L (0-33); Albumin Level 3.2 g/dL (3.5-5.2); Alkaline Phosphatase 69 IU/L (35-105); Anion Gap 12.1 (5-19); Aspartate Amino Transferase 11 U/L (0-32); Blood Urea Nitrogen 7 mg/dL (6-20); Calcium 8.3 mg/dL (8.5-10.5); Carbon Dioxide 22 mmol/L (22-29); Chloride 106 mmol/L (98-107); Globulin 3.1 g/dL (1.3-4.6); Glomerular Filtration Rate 118.2 mL/min (90-130); Glucose 101 mg/dL (65-115); Osmolality Calculated 280 mOsm/kg (285-295); Potassium 4.1 mmol/L (3.5-5.1); Sodium 136 mmol/L (136-145); Total Bilirubin 0.2 mg/dL (0.15-1.2); Total Protein 6.3 g/dL (6.6-8.7)
[2020-06-08 06:49] LABS: Magnesium 1.9 mg/dL (1.7-2.3)
[2020-06-08] MEDS: ondansetron 2 mg/ML SDV 2 mL 4 MG IVP (09:37)
[2020-06-08] MEDS: morphine 4 mg/mL SDV 1 mL IVP ×2 (09:43→20:58)
--- NOTE | 2020-06-08 10:49 | PC.CHAP ---
Pastoral Care Encounter/Spiritual Assessment Type of Contact [X] Declined poke in visit [] Patient/Family/Request visit [] Outpatient visit [] Follow-up visit [] Physician referral [] Code/Alert [X] Routine visit [] Staff referral [] Actively dying [] Patient sleeping [] Family support [] [] Out of room [] Palliative care [] [] Receiving care in room [] Pre-surgical visit [] Trauma [] Long length of stay [] ICU visit [] Other: Relational/Emotional Strength [] Patient feels connected with others/family/visitors/staff [] Distress [] Loneliness/isolation [] Abandonment Spirituality of Patient [] Person of [place] [] Attends Scientology of their [place] [] Believes in Prayer [] Reads Bible or Jain materials [] There are Spiritual issues to be addressed 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 [] Prayer [] Active listening [] Non-anxious presence [] Spiritual/emotional support [] Crisis/trauma care [] Spiritual counseling [] Bereavement support [] Provided bereavement packet [] Provided Bible/devotional materials [] Provided toy/stuffed animal, coloring book to patient or family member [] Provided Communion [] Anointing/[place] [] Salvation [] Completed spiritual assessment [] Other: Impact on Illness or Injury [] Angry [] Fearful [] Anxious [] Often cries [] Exhaustion [] Unable to work [] Unable to attend faith [] Unable to walk/stand [] Unable to read [] Unable to drive [] Unable to eat/drink [] Unable to sleep [] Unable to be with family [] Patient intubated [] Other: Summary Time spent with patient
--- NOTE | 2020-06-08 11:36 | CTR_ITS ---
PROCEDURE INFORMATION: Exam: CT Abdomen And Pelvis With Contrast Exam date and time: 06/08/2020 1:48 PM Age: 29 years old Clinical indication: Abdominal pain; Left; Prior surgery; Surgery date: 6+ months; Surgery type: Gb, hyst, appy; Patient HX: C/O L flank pain w n/v HX of hep c TECHNIQUE: Imaging protocol: Computed tomography of the abdomen and pelvis with intravenous contrast. Radiation optimization: All CT scans at this facility use at least one of these dose optimization techniques: automated exposure control; mA and/or kV adjustment per patient size (includes targeted exams where dose is matched to clinical indication); or iterative reconstruction. Contrast material: OMNI 300; Contrast volume: 95 ml; Contrast route: INTRAVENOUS (IV); COMPARISON: CT abdomen pelvis w con* [id number] 12/12/2018 5:27 PM RADIATION DOSE METRICS: Total DLP (mGy-cm): 839.07 FINDINGS: Mediastinal space: A small hiatal hernia is present. Liver: Unremarkable.No mass. Gallbladder and bile ducts: There has been a cholecystectomy. There is no common bile duct dilation. Pancreas: Normal. No ductal dilation. Spleen: Normal. No splenomegaly. Adrenal glands: Normal. No mass. Kidneys and ureters: There is streaky hypodensity in the kidneys left greater than right and there is left perinephric fat stranding but no hydronephrosis or obstructing calculus. The wall of the left renal pelvis and ureter is thickened and mildly enhancing all concerning for urinary tract infection and early pyelonephritis. There is a new area of poorly marginated hypodensity lower pole left kidney measuring 1.4 cm in size concerning for developing abscess. Stomach and bowel: There is excessive colonic stool content. The wall of the sigmoid colon appears mildly thickened but is also partially collapsed in the appearance is compatible with lack of distension. Appendix: There has been an appendectomy. Intraperitoneal space: Unremarkable. No free air. No significant fluid collection. Vasculature: There are numerous benign phleboliths in the pelvis. Lymph nodes: Multiple new/enlarging retroperitoneal lymph nodes are noted with the largest in the left periaortic space measuring 12 mm in short axis. Multiple subcentimeter lymph nodes are noted in the groin and along the pelvic sidewalls. Urinary bladder: There is nonspecific bladder wall thickening. The bladder is partially collapsed but there is also haziness of the fat adjacent to the urinary bladder and adjacent pelvis. This suspected to be related to cystitis with incomplete distention. Reproductive: There has been a hysterectomy. The right ovary is unremarkable. There is a probable 2.5 cm left ovarian cyst. Bones/joints: Unremarkable. No acute fracture. Soft tissues: There is a fat-containing umbilical hernia. CT/CT abdomen pelvis w con* [id number] IMPRESSION: 1. Prominent urinary bladder wall thickening with haziness of the adjacent fat concerning for cystitis. There is also wall thickening and enhancement of the left ureter and streaky hypodensity in the kidneys concerning for pyelonephritis left greater than right. 2. There is a new area of poorly marginated hypodensity lower pole left kidney measuring 1.4 cm in size concerning for developing abscess. 3. Multiple new/enlarging retroperitoneal lymph nodes are noted with the largest in the left periaortic space measuring 12 mm in short axis. COMMENTS: Consistent with the [employer]'s Incidental Findings Committee white paper (J Am Katharine Radiol 2018): Any incidental renal lesion less than 1 cm or classified as too small to characterize, or any incidental cystic renal lesion characterized as simple-appearing, is likely benign. No follow-up imaging is recommended for these lesions per consensus recommendations based on imaging criteria. Radiation Dose CTDIVOL = (mGy): DLP = 839.07 (mGy-cm)
--- NOTE | 2020-06-08 11:43 | P.PN_ITS ---
Subjective Subjective: Interval history: This is a 29-year-old female with history of of kidney stones, pyelonephritis who presented with left flank pain nausea and multiple episodes of vomiting. She was admitted for complicated UTI. She was seen this morning. She was noted to have continued left flank pain. She is tolerating her antibiotics. Renal ultrasound did not show any stones. She is drinking water without difficulty. Renal ultrasound : Unremarkable kidneys and bladder. Right kidney: Normal. No stones. No hydronephrosis. The right kidney measures 11.6 cm in length. The echotexture of the kidney is appropriate. No perinephric fluid. Left kidney: Normal. No stones. No hydronephrosis. The left kidney measures 11.5 cm in length. The echotexture of the kidney is appropriate. No perinephric fluid. Urinary bladder: Unremarkable. Medications: Reviewed: Yes Vitals/I&O/Wt Last Vital Signs Temp 97.6 F 06/08/20 11:17 Pulse 76 06/08/20 11:17 Resp 16 06/08/20 11:17 BP 84/55 06/08/20 11:17 Pulse Ox 98 06/08/20 11:17 06/07/20 06/08/20 06/08/20 22:59 06:59 14:59 Intake Total 50 / 50 120 / 170 200 / 200 Output Total 120 / 120 600 / 720 Balance -70 / -70 -480 / -550 200 / 200 Weight last 48 hrs Weight 180 lb Physical Exam Const: COMMON NORMALS: no acute distress, average body habitus and patient oriented x3 ORIENTATION/CONSCIOUSNESS: Yes awake and Yes oriented to person Neck/C-Spine: COMMON NORMALS: no JVD Resp: COMMON NORMALS: normal respiratory effort and No retractions Cardio: COMMON NORMALS: no JVD, regular rate and regular rhythm RATE: regular rate RHYTHM: regular rhythm GI: COMMON NORMALS: Soft to palpation and non-tender PALPATION: Yes Soft to palpation Back/Pelvis: OTHER: right side flank pain Neuro: COMMON NORMALS: patient oriented x3 and CN's II-XII intact bilaterally SENSORIUM/ORIENTATION: Yes oriented to person Psych: COMMON NORMALS: mental status grossly normal and Normal thought process present THOUGHT PROCESS: Normal thought process present Data : 06/08/20 05:18 06/08/20 05:18 Micro: Microbiology 06/07/20 18:55 Blood Culture - Preliminary Blood SPECIMEN COLLECTED 06/07/20 18:55 Blood Culture - Preliminary Blood SPECIMEN COLLECTED A&P Assessment and plan (1) Acute UTI: Follow-up cultures including blood Continue Rocephin Develops dysuria will add Pyrimidine Status: Acute (2) Pyelonephritis: IVF,abx, prn analgesics will check CT abd pelvis due to persistant back pain Status: Acute (3) Vomiting: resolved Status: Acute Qualifiers: Nausea presence: with nausea Vomiting Intractability: unspecified Vomiting type: unspecified Qualified Code(s): R11.2 - Nausea with vomiting, unspecified Additional A&P Information DVT:Lovenox Code:full Dispo: home Attestations Medical Necessity Statement*: Eleonora White's hospital stay will require greater than 2 midnights for pyelnephritis Coding Level of Care Code Acute Machine Chain Maker for g Fwd Diagnoses Acute UTI N39.0 Pyelonephritis N12 Vomiting R11.2 Nausea presence: with nausea Vomiting Intractability: unspecified Vomiting type: unspecified
[2020-06-08] MEDS: famotidine 20 mg/2 mL INJ IVP ×2 (12:09→21:46)
[2020-06-08] MEDS: sodium chloride 0.9% 1,000 ML 75 ML IV (12:09)
[2020-06-08] MEDS: iohexol 300 mg/mL 50 mL Btl PO (15:29)
[2020-06-08] MEDS: iohexol 300 mg/mL 100 mL Btl IV (15:46)
[2020-06-08] MEDS: nicotine 21 mg Patch 1 PATCH TRANSDERMA (20:05)
[2020-06-08] MEDS: cefTRIAXone 1,000 MG in sodium chloride 0.9% (plus) 50 ML 100 MG IV (20:23)
[2020-06-08] MEDS: enoxaparin 30 mg/0.3 mL Syringe SUBCUT (21:46)
[2020-06-09] VITALS (9 sets, daily range): BP systolic 88–113; BP diastolic 56–73; PULSE 76–94; RESP 16–18; TEMP 36.8–37.3; O2SAT 81–100
[2020-06-09] MEDS: sodium chloride 0.9% 1,000 ML 75 ML IV ×2 (01:43→15:52)
--- NOTE | 2020-06-09 09:05 | PC.CHAP ---
Pastoral Care Encounter/Spiritual Assessment Type of Contact [] Declined microsoft dynamics manager architect visit [] Patient/Family/Request visit [] Outpatient visit [] Follow-up visit [] Physician referral [] Code/Alert [] Routine visit [] Staff referral [] Actively dying [] Patient sleeping [] Family support [] [] Out of room [] Palliative care [] [] Receiving care in room [] Pre-surgical visit [] Trauma [] Long length of stay [] ICU visit [] Other: Relational/Emotional Strength [] Patient feels connected with others/family/visitors/staff [] Distress [] Loneliness/isolation [] Abandonment Spirituality of Patient [x] Person of [place] [] Attends Restorationism of their [place] [] Believes in Prayer [] Reads Bible or Scientologist materials [] There are Spiritual issues to be addressed Patient'S Librarian Interventions [x] Prayer [x] Active listening [] Non-anxious presence [] Spiritual/emotional support [] Crisis/trauma care [] Spiritual counseling [] Bereavement support [] Provided bereavement packet [] Provided Bible/devotional materials [] Provided toy/stuffed animal, coloring book to patient or family member [] Provided Communion [] Anointing/[place] [] Salvation [x] Completed spiritual assessment [] Other: Impact on Illness or Injury [] Angry [] Fearful [] Anxious [] Often cries [] Exhaustion [] Unable to work [] Unable to attend alevism [] Unable to walk/stand [] Unable to read [] Unable to drive [] Unable to eat/drink [] Unable to sleep [] Unable to be with family [] Patient intubated [] Other: Summary patient in lots of pain Time spent with patient 10 min
--- NOTE | 2020-06-09 09:39 | PC.RESP ---
Smoking Cessation information sent to patient.
[2020-06-09] MEDS: famotidine 20 mg/2 mL INJ IVP ×2 (10:19→21:41)
[2020-06-09] MEDS: morphine 4 mg/mL SDV 1 mL IVP (10:32)
--- NOTE | 2020-06-09 14:30 | P.PN_ITS ---
Subjective Subjective: Interval history: Overnight patient has been complaining of ongoing flank pain. Has improved since admission. No fever, chills, nausea or vomiting. Vitals/I&O/Wt Last Vital Signs Temp 98.2 F 06/09/20 11:33 Pulse 88 06/09/20 11:33 Resp 18 06/09/20 11:33 BP 113/73 06/09/20 11:33 Pulse Ox 99 06/09/20 11:33 06/08/20 06/09/20 06/09/20 22:59 06:59 14:59 Intake Total 530 / 2187.5 1480 / 3667.5 720 / 720 Output Total 1600 / 2400 700 / 700 Balance 530 / 1387.5 -120 / 1267.5 Weight last 48 hrs Weight 81.647 kg Physical Exam Narrative: EXAM NARRATIVE: General: Alert, awake and oriented x 3, NAD HEENT : Grossly unremarkable CVS : NSR CHEST : Non-labored respiration ABD: Soft Ext: no edema Data : 06/08/20 05:18 06/08/20 05:18 Micro: Microbiology 06/07/20 16:58 Urine Culture - Preliminary Urine,Clean Catch Gram Negative Rods 06/07/20 18:55 Blood Culture - Preliminary Blood NEGATIVE TO DATE 06/07/20 18:55 Blood Culture - Preliminary Blood NEGATIVE TO DATE A&P Assessment and plan (1) Pyelonephritis: Status: Acute (2) Acute UTI: Status: Acute (3) Hepatitis C: Status: Acute Qualifiers: Viral hepatitis chronicity: chronic Hepatic coma status: without hepatic coma Qualified Code(s): B18.2 - Chronic viral hepatitis C (4) S/p bilateral carpal tunnel release: Status: Acute (5) Bilateral carpal tunnel syndrome: Status: Chronic Will continue IV abx for now. Blood culture x 2 negative Urine culture culture - Preliminary - gram negative rods Will await final culture and susceptibilities. No fevers CT abdomen/pelvis reviewed from admission. Wean Pain medication Tylenol PRN for fever Repeat labs in AM Attestations Medical Necessity Statement*: Will require further day in hospital pending final culture and susceptibilities. Continue IV abx for now. Time Spent in Patient Care: Greater than 35 minutes Coding Level of Care Code Acute Front Desk Admin for [facility] Blanche Diagnoses Pyelonephritis N12 Acute UTI N39.0 Hepatitis C B18.2 Viral hepatitis chronicity: chronic Hepatic coma status: without hepatic coma S/p bilateral carpal tunnel release Z98.890 Bilateral carpal tunnel syndrome G56.03
[2020-06-09] MEDS: cefTRIAXone 1,000 MG in sodium chloride 0.9% (plus) 50 ML 100 MG IV (20:13)
[2020-06-09] MEDS: nicotine 21 mg Patch 1 PATCH TRANSDERMA (20:14)
--- NOTE | 2020-06-09 21:24 | PC.NURSE ---
Refused Lovenox injection. Patient did not want her lovenox injection. I educated her on why these are important. Patient still denies injection.
[2020-06-09] MEDS: acetaminophen 325 mg Tablet 650 MG PO (23:54)
[2020-06-10 04:20] VITALS: BP 97/63; PULSE 77; RESP 17; TEMP 36.8; O2SAT 98
[2020-06-10 05:26] LABS: Basophils % 0.4 %; Eosinophils # 0.1 10^3/uL (0.0-0.8); Eosinophils % 1.8 %; Hematocrit 33.2 % (37.0-47.0); Hemoglobin 11.2 g/dL (11.5-15.3); Lymphocytes # 2.3 10^3/uL (0.8-4.8); Lymphocytes % 29.3 %; Mean Corpuscular HGB Conc 33.7 g/dL (30.0-36.0); Mean Platelet Volume 10.7 fL (7.4-10.4); Monocytes # 0.9 10^3/uL (0.2-0.9); Monocytes % 11.6 %; Neutrophils # 4.46 10^3/uL (1.8-7.7); Neutrophils % 55.9 %; Nucleated Red Blood Cells % 0 %; Platelet Count 224 10^3/cmm (130-400); Red Blood Count 3.61 10^6/uL (4.1-5.3); Red Cell Distribution Width 11.8 % (12.1-15.1)
[2020-06-10 06:02] LABS: Alanine Aminotransferase 6 U/L (0-33); Albumin Level 3.4 g/dL (3.5-5.2); Alkaline Phosphatase 64 IU/L (35-105); Anion Gap 14.8 (5-19); Aspartate Amino Transferase 9 U/L (0-32); Blood Urea Nitrogen 5 mg/dL (6-20); Calcium 8.4 mg/dL (8.5-10.5); Carbon Dioxide 23 mmol/L (22-29); Chloride 105 mmol/L (98-107); Globulin 2.7 g/dL (1.3-4.6); Glomerular Filtration Rate 118.2 mL/min (90-130); Glucose 91 mg/dL (65-115); Osmolality Calculated 285 mOsm/kg (285-295); Potassium 3.8 mmol/L (3.5-5.1); Sodium 139 mmol/L (136-145); Total Bilirubin 0.2 mg/dL (0.15-1.2); Total Protein 6.1 g/dL (6.6-8.7)
[2020-06-10 07:51] VITALS: BP 101/68; PULSE 76; RESP 18; TEMP 36.7; O2SAT 98
[2020-06-10] MEDS: acetaminophen 325 mg Tablet 650 MG PO (08:54)
[2020-06-10] MEDS: famotidine 20 mg Tablet PO (10:29)
[2020-06-10 11:37] VITALS: BP 111/65; PULSE 96; RESP 18; TEMP 36.8; O2SAT 99
--- NOTE | 2020-06-10 13:30 | PC.NURSE ---
Discharge instructions given to patient. All questions answered. Patient in stable condition. IV was removed. Catheter intact. Dressing applied, 2x2 and coban.
[2020-06-10 13:42] VITALS: BP 111/65; PULSE 96; RESP 18; TEMP 36.8; O2SAT 99
--- NOTE | 2020-06-10 19:00 | P.DS_ITS ---
Discharge Providers Date of Admission: 06/08/20 11:43 Date of Discharge: June 10, 2020 Attending Provider at Admission: Gerardo Rico MD Attending Provider at Discharge: Alton John Primary Care Provider: Jenna Flores DO Diagnoses at Discharge Discharge Diagnosis (1) Pyelonephritis: Status: Acute (2) Acute UTI: Status: Acute (3) Hepatitis C: Status: Acute Qualifiers: Viral hepatitis chronicity: chronic Hepatic coma status: without hepatic coma Qualified Code(s): B18.2 - Chronic viral hepatitis C (4) S/p bilateral carpal tunnel release: Status: Resolved (5) Bilateral carpal tunnel syndrome: Status: Resolved Reason for Visit Reason for Visit: mid back pain Hospital Course Hospital Course 29 year old female with past medical history of renal calculi and complicated with pyelonephritis came in with chief complaint of left flank pain as well nausea and multiple episodes of vomiting along with documented fever at home, several rounds of Tylenol for fever. symptoms are going on for last 3 days.According to her pain as well as nausea and vomiting worsen with movement. She has no urinary complaint. Denies any Shortness of breath, cough, headache, sick contact. Upon arrival in the ER she was worked up for flank pain. Imaging studies: Renal ultrasound : Unremarkable kidneys and bladder. Right kidney: Normal. No stones. No hydronephrosis. The right kidney measures 11.6 cm in length. The echotexture of the kidney is appropriate. No perinephric fluid. Left kidney: Normal. No stones. No hydronephrosis. The left kidney measures 11.5 cm in length. The echotexture of the kidney is appropriate. No perinephric fluid. Urinary bladder: Unremarkable. Pertinent labs: WBC:16.3 H/H : 13/38, Urinalysis: Leukocyte Estrace positive, urine WBC: 40-55 Patient was continued on rocephin during hospitalization. Leukocytosis and flank pain resolved. Afebrile. Was comfortable with discharging. Blood culture x 2 remained negative. Urine culture showed e-coli. Based on this script for ciprofloxacin was given. Advised to return to hospital if any recurrance of fever or pain. Physical Exam Narrative: EXAM NARRATIVE: General: Alert, awake and oriented x 3, NAD HEENT : Grossly unremarkable CVS : NSR CHEST : Non-labored respiration ABD: Soft Ext: no edema Discharge Data Data Completed and Pending: Completed Studies During Hospitalization Category Date Time Status CT abdomen pelvis w con* [id number] Urge nt Cat Scan 06/08/20 11:36 Completed US renal BI* [id number] Stat Ultrasound 06/07/20 18:30 Completed Vitals: Last Vital Signs Temp 98.3 F 06/10/20 13:42 Pulse 96 06/10/20 13:42 Resp 18 06/10/20 13:42 BP 111/65 06/10/20 13:42 Pulse Ox 99 06/10/20 13:42 Discharge Plan Discharge Patient Disposition: Home Condition: Stable Prescriptions: New ciprofloxacin HCl 500 mg tablet 500 mg PO Q12H Qty: 14 RF: 0 Continued buprenorphine-naloxone 2-0.5 mg tablet, sublingual See Rx Instructions .ROUTE .COMPLEX RF: 0 Discharge Orders: Discharge Order (Routine); Ordered 06/10/20 Ordered By: Alton John Referrals: Jenna Flores DO [Primary Care Provider] - 06/19/20 11:30 am Discharge Diet: Regular Discharge Activity: Resume usual activity Patient Instructions: Ciprofloxacin (By mouth), Urinary Tract Infection in Women (GEN) Discharge Attestations Time Spent in Discharge Care*: greater than 30 min Specific Discharge Activities: educating patient, educating and/or supporting family/caregiver, discussing with nurse case manager/social workers/dc planners, documenting/other paperwork and evaluating patient/reviewing data Status at Discharge: Cognitive status at discharge: cognitively intact , Behavioral status at discharge: cooperative , Functional status at discharge: independent ambulation Overall status at discharge: patient is back to baseline Quality Metrics Clinical Quality Measures During this hospital stay, did patient experience: None Coding Level of Care Code Acute Field Research Assistant for Chg Fwd Diagnoses Pyelonephritis N12 Acute UTI N39.0 Hepatitis C B18.2 Viral hepatitis chronicity: chronic Hepatic coma status: without hepatic coma S/p bilateral carpal tunnel release Z98.890 Bilateral carpal tunnel syndrome G56.03
== END 2020-06-10 13:43 | disposition home or self-care (01) | DRG 690 ==
LOC: ER 20:57 → MEDSURG 21:08
PROVIDERS: Family Medicine; Admitting Provider Internal Medicine; Emergency Provider Emergency Medicine; PCP Family Medicine; Visit Provider Hospitalist
DX: N12 Tubulo-interstitial nephritis, not specified as acute or chronic (principal); B18.1 Chronic viral hepatitis B without delta-agent; G56.03 Carpal tunnel syndrome, bilateral upper limbs; J44.9 Chronic obstructive pulmonary disease, unspecified; M79.7 Fibromyalgia; F17.210 Nicotine dependence, cigarettes, uncomplicated
CPT/HCPCS: 12345; 36415; 74177; 76770; 80053; 81001; 83605; 83735; 85025; 85610; 87040; 87077; 87086; 87186; 96372; 96375; 99283; G0378; J0696; J1650; J2270; J2405; J3490; J7030; Q9967

== ENCOUNTER → 2020-12-22 15:33 | Outpatient (BNVA) | payer MEDICAID, SELFPAY | PROVIDERS: PCP Family Medicine; Visit Provider Internal Medicine | DX: B18.2 Chronic viral hepatitis C (principal) | CPT/HCPCS: 87522 ==

== ENCOUNTER → 2020-12-29 15:06 | Outpatient (BNVA) | payer MEDICAID, SELFPAY | PROVIDERS: PCP Family Medicine; Visit Provider Family Medicine | DX: R60.0 Localized edema (principal); Z68.37 Body mass index [BMI] 37.0-37.9, adult; F17.219 Nicotine dependence, cigarettes, with unspecified nicotine-induced disorders; Z71.6 Tobacco abuse counseling; Z71.89 Other specified counseling | CPT/HCPCS: 80048; 84443 ==

== ENCOUNTER 2020-12-31 11:52 | Outpatient (CLI) | payer MEDICAID, SELFPAY ==
--- NOTE | 2020-12-31 12:15 | USCV_ITS ---
Eleonora White Age: 30 Gender: F : 1990 Exam Date: 12/31/2020 12:28 Ordering Phys: Jenna Flores DO Technologist: Sol Madison [place]am [place] [facility] [place] Indication: EDEMA BP: 120 / 80 HR: 82 Rhythm: Sinus Technical Quality: Adequate MEASUREMENTS (Male / Female) Normal Values 2D ECHO LV Diastolic Diameter PLAX 4.7 cm 4.2 - 5.9 / 3.9 - 5.3 cm LV Systolic Diameter PLAX 3.1 cm IVS Diastolic Thickness 0.7 cm 0.6 - 1.0 / 0.6 - 0.9 cm IVS Systolic Thickness 1.4 cm LVPW Diastolic Thickness 0.9 cm 0.6 - 1.0 / 0.6 - 0.9 cm LVPW Systolic Thickness 1.1 cm LVOT Diameter 2.0 cm LV Ejection Fraction 2D Teich 62.3 % LV Ejection Fraction MOD 2C 57.4 % LV Ejection Fraction 2C AL 54.8 % LA Diameter 2.7 cm LA Width 2.5 cm LA Height 3.9 cm RA Width 2.1 cm RA Height 3.5 cm Aorta at Sinotubular Diameter 2.0 cm M-MODE LV Diastolic Diameter MM 4.8 cm 4.2 - 5.9 / 3.9 - 5.3 cm LV Systolic Diameter MM 2.9 cm LV Ejection Fraction MM Teich 70.3 % IVS Diastolic Thickness MM 1.5 cm 0.6 - 1.0 / 0.6 - 0.9 cm IVS Systolic Thickness MM 2.0 cm LVPW Diastolic Thickness MM 1.0 cm 0.6 - 1.0 / 0.6 - 0.9 cm LVPW Systolic Thickness MM 1.5 cm Aortic Annulus Diameter 2.9 cm LA Ao Ratio MM 0.9 MV E Point Septal Separation 0.4 cm DOPPLER AV Peak Velocity 141.0 cm/s LVOT Peak Velocity 99.0 cm/s AV Area Cont Eq vti 2.3 cm squared AV Area Cont Eq pk 2.2 cm squared MV Peak Velocity 109.0 cm/s MV Area PHT 4.9 cm squared Mitral E to A Ratio 1.5 MV E' Velocity 46.5 cm/s Mitral E to MV E' Ratio 5.9 Mitral E to LV E' Lateral Ratio 5.9 Mitral E to LV E' Septal Ratio 6.0 TR Peak Velocity 204.0 cm/s TR Peak Gradient 16.6 mmHg TV Peak E Velocity 58.0 cm/s Right Atrial Pressure 3.0 mmHg Pulmonary Artery Systolic Pressu 19.6 mmHg PV Peak Velocity 84.0 cm/s RV Acceleration Time 0.1 s RV Ejection Time 0.3 s RV AcT/ET 0.2 FINDINGS Left Ventricle Normal left ventricular size. LV systolic function is normal with EF of 55-60%. No regional wall motion abnormalities. Normal diastolic filling pattern. Right Ventricle The right ventricle is normal in size and function. Right Atrium The right atrium is normal in size. Left Atrium The left atrium is normal in size. Mitral Valve Structurally normal mitral valve without significant stenosis or prolapse. There is trace mitral regurgitation. Aortic Valve Structurally normal aortic valve without significant sclerosis or stenosis. There is no aortic regurgitation. Tricuspid Valve Structurally normal tricuspid valve without significant stenosis or regurgitation. Insufficient TR jet to calculate RVSP Pulmonic Valve Structurally normal pulmonic valve without significant stenosis. There is no pulmonic regurgitation. Pericardium Normal pericardium without effusion. Aorta Normal ascending aorta dimension. CONCLUSIONS LV systolic function is normal with EF of 55-60% Diastolic function is normal Trace mitral regurgitation Compared to prior echocardiogram from 06/08/2017, no significant changes are noted Wes Kamara MD (Electronically Signed) Final Date: 05 January 2021 17:13 S
== END 2020-12-31 11:53 | disposition home or self-care (01) ==
LOC: RAD 11:54
PROVIDERS: PCP Family Medicine; Visit Provider Family Medicine
DX: R60.9 Edema, unspecified (principal); I34.0 Nonrheumatic mitral (valve) insufficiency
CPT/HCPCS: 93306

== ENCOUNTER → 2021-07-21 15:37 | Outpatient (BNVA) | payer MEDICAID, SELFPAY | PROVIDERS: PCP Family Medicine; Visit Provider Nurse Practitioner Family | DX: Z20.822 Contact with and (suspected) exposure to COVID-19 (principal) | CPT/HCPCS: 87635 ==

== ENCOUNTER 2023-03-15 11:19 | Emergency (ER) | payer MEDICAID, SELFPAY ==
[2023-03-15 11:21] VITALS: BP 124/77; PULSE 98; RESP 17; TEMP 36.8; O2SAT 96; BMI 32.5
--- NOTE | 2023-03-15 11:30 | XR_ITS ---
WS: [id number] Exam: XR foot LT min 3V* [id number] Date/Time of Exam: 03/15/2023 11:37 AM Reason For Exam: trauma Findings: Findings: The foot was examined in multiple views and reveals no fractures or displacements of bone. No bony a nomalies are noted. The bony elements are in adequate alignment. The joint spaces are smooth and eq uidistant. IMPRESSION: Negative LEFT foot.
--- NOTE | 2023-03-15 11:52 | ED_ITS ---
HPI - Fall General: Chief Complaint: Fall Stated Complaint: headache , n/v , dizzy Time Seen by Provider: 03/15/23 11:29 Source: patient Mode of arrival: ambulatory History of Present Illness: 32-year-old female who fell through a porch today evidently reports was unsteady Neurontin she fell she hurt her right foot she has some aches and pains and discomfort. She has been nauseous. No loss of consciousness. No lacerations o r abrasions. complaint: fall Onset (ago): minute(s) Fall from: standing Place fall occurred: home Loss of consciousness: None Prolonged down time: no Symptoms prior to fall: none Location of injury: head Location of injury - extremities: Left: foot Severity: mild Associated symptoms-after fall: Reports difficulty walking; Denies abdominal pain, chest pain, confusion, headache(s), hematuria, neck pain, numbness, short of breath, vertigo or weakness Review of Systems Const: Reports: body aches; Denies: fever(s), chills, fatigue or malaise ENMT: Denies: throat pain, ear or mastoid pain, nasal discharge or nasal congestion Card: Denies: chest pain Resp: Denies: dyspnea, productive cough or non-productive cough GI: Reports: nausea and vomiting; Denies: abdominal pain : Denies: dysuria, urinary frequency, urinary urgency or hematuria Musc: Denies: neck pain Skin/Breast: Denies: rash or pruritus Neuro: Reports: difficulty walking; Denies: headache(s), vertigo or confusion PFSH ED PFSH: Medical History COPD (chronic obstructive pulmonary disease) Fibromyalgia Hepatitis C Seizures Surgical History H/O section H/O tubal ligation H/O: hysterectomy due to cervical / uterine / ovarian cancer History of appendectomy History of cholecystectomy S/p bilateral carpal tunnel release Family History Other Hypertension Seizure disorder Thyroid condition Social History Smoking and tobacco status: current every day smoker cigarettes Packs smoked per day: 1 Alcohol intake: former Substance/Drug Use: former Date of 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, meth, heroin, thc Physical Exam Const: GENERAL APPEARANCE: cooperative ORIENTATION/CONSCIOUSNESS: Yes awake, Yes oriented to person, Yes oriented to place and Yes oriented to time HENMT: COMMON NORMALS: normocephalic, atraumatic and hearing grossly normal bilaterally HEAD & SCALP: normocephalic and atraumatic Resp: COMMON NORMALS: normal respiratory effort, No retractions, No use of accessory muscles and clear to auscultation bilaterally AUSCULTATION: clear to auscultation bilaterally Cardio: COMMON NORMALS: regular rate, regular rhythm and No murmurs present (Cardio) RATE: regular rate RHYTHM: regular rhythm GI: COMMON NORMALS: Soft to palpation and No hepatosplenomegaly present AUSCULTATION: Yes normoactive bowel sounds PALPATION: Yes Soft to palpation, No Tenderness to palpation present (GI), No Guarding due to palpation present (GI) and Yes No hepatosplenomegaly present Extremity: COMMON NORMALS: normal to inspection, capillary refill normal, no clubbing, cyanosis or edema, no calf tenderness and no pedal edema OTHER: No deformity extremities mild pain with palpation of the foot no pain or swelling at the ankle no abrasions no lacerations Neuro: SENSORIUM/ORIENTATION: Yes oriented to person, Yes oriented to place and Yes oriented to time OTHER: Pupils equal react light extraocular is intact no evidence of focal neurologic deficit noted no nystagmus no ataxia. Skin: COMMON NORMALS: no rashes or lesions noted GENERAL SKIN EXAM: no rashes or lesions noted Course Vital Signs: Vital signs: Vital Signs Temperature 98.3 F 03/15/23 11:21 Pulse Rate 78 03/15/23 13:33 Respiratory Rate 16 03/15/23 13:33 Blood Pressure 113/63 03/15/23 13:33 Pulse Oximetry 99 03/15/23 13:33 Oxygen Delivery Me thod Room Air 03/15/23 11:21 MDM - Fall Medical Decision Making Foot x-rays negative. Clinically cleared her cervical spine by range of motion without eliciting pain. Examination scalp there is no evidence of injury no abrasion laceration no swelling or inflammation. Neurologically she is intact at this point with no evidence of severe head injury requiring advanced imaging. We will discharge patient home with anti-inflammatories as needed the left foot x-ray was negative. Medical Records I reviewed the patient's medical records. Lab Data I reviewed the patient's lab results. Discharge Plan Discharge Patient Disposition: Home Clinical Impression: Fall, Sprain of left foot Condition: Stable Prescriptions: New diclofenac sodium 75 mg tablet,delayed release (DR/EC) 75 mg PO Q12H PRN (Reason: pain) Qty: 20 0RF No Action buprenorphine-naloxone 2-0.5 mg tablet, sublingual See Rx Instructions .ROUTE .COMPLEX Rx Instructions: 1 tab sublingually pt takes 1/2 strip at 0300, 1/2 at 0500, 1/2 strip at 1200, 1/2 strip at 1400 and 12/ strip at 1800 albuterol sulfate [ProAir HFA] 90 mcg/actuation HFA aerosol inhaler 2 puff inhalation Q6H PRN buprenorphine-naloxone [Suboxone] 2-0.5 mg film 1 film buccal DAILY Rx Instructions: place 1 strip/tab under (each) side of tongue prednisone 20 mg tablet 60 mg PO DAILY 5 Days Qty: 15 0RF levofloxacin 750 mg tablet 750 mg PO DAILY 10 Days Qty: 10 0RF albuterol sulfate 90 mcg/actuation HFA aerosol inhaler 2 inh inhalation Q4H PRN (Reason: shortness of breath or wheezing) Qty: 6.7 0RF Discharge Orders: Discharge ED (Routine); Ordered 03/15/23 Ordered By: Cj Sotelo Referrals: Jenna Flores DO [Primary Care Provider] - Discharge Diet: Usual diet Discharge Activity: Increase activity as tolerated Patient Instructions: Opioid Safety, Pain Management Coding Level of Care Code ED [employer] Attendant for Christina Mancia
[2023-03-15] MEDS: ketorolac 60 mg/2 mL INJ IM (13:07)
[2023-03-15] MEDS: promethazine 25 mg/mL SDV 1 mL IM (13:07)
[2023-03-15 13:33] VITALS: BP 113/63; PULSE 78; RESP 16; O2SAT 99
== END 2023-03-15 13:34 | disposition home or self-care (01) ==
PROVIDERS: Emergency Provider Family Medicine; PCP Family Medicine
DX: S93.602A Unspecified sprain of left foot, initial encounter (principal); J44.9 Chronic obstructive pulmonary disease, unspecified; Z86.19 Personal history of other infectious and parasitic diseases; F17.210 Nicotine dependence, cigarettes, uncomplicated; W19.XXXA Unspecified fall, initial encounter
CPT/HCPCS: 73630; 96372; 99284; J1885; J2550

== ENCOUNTER 2023-04-25 08:23 | Emergency (ER) | payer MEDICAID, SELFPAY ==
[2023-04-25 08:31] VITALS: BP 119/77; PULSE 103; RESP 16; TEMP 36.8; O2SAT 99; BMI 35.2
--- NOTE | 2023-04-25 08:45 | XR_ITS ---
WS: [id number] Exam: XR foot LT min 3V* [id number] Date/Time of Exam: 04/25/2023 9:06 AM Reason For Exam: trauma Comparison 03/15/2023. No fracture or dislocation noted. No soft tissue foreign bodies are seen. Articular relationships jerrod ear normal. IMPRESSION: 1. Negative LEFT foot.
--- NOTE | 2023-04-25 09:51 | ED_ITS ---
HPI - Extremity Problem General: Chief complaint: Extremity Injury, Lower Stated complaint: left foot injury Time Seen by Provider: 04/25/23 08:52 [facility] ED PFS: Medical History (Updated 04/25/23 @ 09:53 by MINGO Bar) COPD (chronic obstructive pulmonary disease) Fibromyalgia Hepatitis C Seizures Surgical History H/O section H/O tubal ligation H/O: hysterectomy due to cervical / uterine / ovarian cancer History of appendectomy History of cholecystectomy S/p bilateral carpal tunnel release Family History Other Hypertension Seizure disorder Thyroid condition Social History Smoking and tobacco/nicotine status: current every day tobacco/nicotine user cigarettes Packs smoked per day: 1 Alcohol intake: former Substance/Drug Use: former Date of 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, meth, heroin, thc Course Vital Signs: Vital signs: Vital Signs Temperature 98.3 F 04/25/23 08:31 Pulse Rate 103 H 04/25/23 08:31 Respiratory Rate 16 04/25/23 08:31 Blood Pressure 119/77 04/25/23 08:31 Pulse Oximetry 99 04/25/23 08:31 Oxygen Delivery Me thod Room Air 04/25/23 08:31 Discharge Plan Discharge Patient Disposition: Home Clinical Impression: Injury of foot, left Qualifiers: Encounter type: initial encounter Qualified Code(s): S99.922A - Unspecified injury of left foot, initial encounter Condition: Stable Prescriptions: No Action buprenorphine-naloxone 2-0.5 mg tablet, sublingual See Rx Instructions .ROUTE .COMPLEX Rx Instructions: 1 tab sublingually pt takes 1/2 strip at 0300, 1/2 at 0500, 1/2 strip at 1200, 1/2 strip at 1400 and 12/ strip at 1800 albuterol sulfate [ProAir HFA] 90 mcg/actuation HFA aerosol inhaler 2 puff inhalation Q6H PRN buprenorphine-naloxone [Suboxone] 2-0.5 mg film 1 film buccal DAILY Rx Instructions: place 1 strip/tab under (each) side of tongue prednisone 20 mg tablet 60 mg PO DAILY 5 Days Qty: 15 0RF levofloxacin 750 mg tablet 750 mg PO DAILY 10 Days Qty: 10 0RF albuterol sulfate 90 mcg/actuation HFA aerosol inhaler 2 inh inhalation Q4H PRN (Reason: shortness of breath or wheezing) Qty: 6.7 0RF diclofenac sodium 75 mg tablet,delayed release (DR/EC) 75 mg PO Q12H PRN (Reason: pain) Qty: 20 0RF Discharge Orders: Discharge ED (Routine); Ordered 04/25/23 Ordered By: Shasha Ayala Referrals: Jenna Flores DO [Primary Care Provider] - Activity Restrictions/Additional Instructions: As we discussed I will place a referral with [facility] podiatry. Case management should reach out to you shortly to help set you up with this follow-up appointment. Coding Level of Care Code ED Childbirth And Infant Care Teacher for Christina Mancia
--- NOTE | 2023-04-25 09:58 | W.ED.LOWEXIN ---
HPI - Extremity Injury (Lower) General: Chief Complaint: Extremity Injury, Lower Stated Complaint: left foot injury Time Seen by Provider: 04/25/23 08:52 Source: patient Mode of arrival: ambulatory (with boot) Limitations: no limitations History of Present Illness: Patient is a 32-year-old female presents to ED today with a complaint of left foot pain/injury. She states approximately 6 weeks ago (date of injury 03/15) she injured the left foot-states she fell through a porch. Patient was seen here in the emergency department and had negative foot XRs performed. Patient states since this visit she has had minimal weightbearing on the foot. She has been wearing a cam walker/boot most of the time. Patient states recently she was going down a flight of stairs and injured the foot as she tripped over some broken cement at the bottom. complaint: foot injury Onset (ago): week(s) Injury: Left: foot Place: home Severity: moderate Relieving factors: immobilization Exacerbating factors: weight bearing Context: fall Associated symptoms: Reports inability to bear weight Other symptoms: none Treatments prior to arrival: splint Review of Systems Musc: Reports: extremity pain (L foot) and limited range of motion; Denies: extremity swelling, joint pain, joint swelling or joint redness Neuro: Denies: numbness in extremities or sensory changes PFSH ED PFSH: Medical History COPD (chronic obstructive pulmonary disease) Fibromyalgia Hepatitis C Seizures Surgical History H/O section H/O tubal ligation H/O: hysterectomy due to cervical / uterine / ovarian cancer History of appendectomy History of cholecystectomy S/p bilateral carpal tunnel release Family History Other Hypertension Seizure disorder Thyroid disease Social History Smoking and tobacco/nicotine status: current every day tobacco/nicotine user cigarettes Packs smoked per day: 1 Alcohol intake: former Substance/Drug Use: former Date of 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, meth, heroin, thc Physical Exam Const: COMMON NORMALS: no acute distress, patient oriented x3, no limitations, alert and well nourished GENERAL APPEARANCE: cooperative ORIENTATION/CONSCIOUSNESS: Yes awake, Yes oriented to person, Yes oriented to place and Yes oriented to time Extremity: COMMON NORMALS: capillary refill normal GENERAL: Yes normal exam except as noted LEFT LOWER EXTREMITY: Yes ankle joint (normal ankle exam) and Yes foot & digits (TTP dorsal L foot without swelling or bony deformity) Left foot and digits: Yes inspection (normal gross inspection ) and Yes neurovascular exam (normal) Neuro: COMMON NORMALS: patient oriented x3, moves all extremities, no focal motor deficits and no sensory deficits noted SENSORIUM/ORIENTATION: Yes alert, Yes oriented to person, Yes oriented to place and Yes oriented to time Course Vital Signs: Vital signs: Vital Signs Temperature 98.3 F 04/25/23 08:31 Pulse Rate 103 H 04/25/23 08:31 Respiratory Rate 16 04/25/23 08:31 Blood Pressure 119/77 04/25/23 08:31 Pulse Oximetry 99 04/25/23 08:31 Oxygen Delivery Me thod Room Air 04/25/23 08:31 MDM - Extremity Injury (Lower) Medical Decision Making XRs negative today. Will refer to podiatry as she has now had pain for 6 weeks and continues to be non-ambulatory secondary to this. All radiology interpretation(s) finalized by discharge Discharge Plan Discharge Patient Disposition: Home Clinical Impression: Injury of foot, left Qualifiers: Encounter type: initial encounter Qualified Code(s): S99.922A - Unspecified injury of left foot, initial encounter Condition: Stable Prescriptions: No Action buprenorphine-naloxone 2-0.5 mg tablet, sublingual See Rx Instructions .ROUTE .COMPLEX Rx Instructions: 1 tab sublingually pt takes 1/2 strip at 0300, 1/2 at 0500, 1/2 strip at 1200, 1/2 strip at 1400 and 12/ strip at 1800 albuterol sulfate [ProAir HFA] 90 mcg/actuation HFA aerosol inhaler 2 puff inhalation Q6H PRN buprenorphine-naloxone [Suboxone] 2-0.5 mg film 1 film buccal DAILY Rx Instructions: place 1 strip/tab under (each) side of tongue prednisone 20 mg tablet 60 mg PO DAILY 5 Days Qty: 15 0RF levofloxacin 750 mg tablet 750 mg PO DAILY 10 Days Qty: 10 0RF albuterol sulfate 90 mcg/actuation HFA aerosol inhaler 2 inh inhalation Q4H PRN (Reason: shortness of breath or wheezing) Qty: 6.7 0RF diclofenac sodium 75 mg tablet,delayed release (DR/EC) 75 mg PO Q12H PRN (Reason: pain) Qty: 20 0RF Discharge Orders: Discharge ED (Routine); Ordered 04/25/23 Ordered By: Shasha Ayala Referrals: Jenna Flores DO [Primary Care Provider] - Activity Restrictions/Additional Instructions: As we discussed I will place a referral with [facility] podiatry. Case management should reach out to you shortly to help set you up with this follow-up appointment. Coding Level of Care Code ED Store Warehouse Associate for Christina Mancia
--- NOTE | 2023-04-25 12:18 | DCPLANNER ---
Referral was faxed to podiatry on 04/25/23 at 12:18. Clinic to contact patient
== END 2023-04-25 10:19 | disposition home or self-care (01) ==
PROVIDERS: Emergency Provider Physician Assistant; PCP Family Medicine
DX: S99.922A Unspecified injury of left foot, initial encounter (principal); J44.9 Chronic obstructive pulmonary disease, unspecified; Z86.19 Personal history of other infectious and parasitic diseases; F17.210 Nicotine dependence, cigarettes, uncomplicated; W22.8XXA Striking against or struck by other objects, initial encounter
CPT/HCPCS: 73630; 99283

== ENCOUNTER → 2023-05-09 14:10 | Outpatient (BNVA) | payer MEDICAID, SELFPAY | PROVIDERS: PCP Family Medicine; Visit Provider Podiatrist Foot & Ankle Surgery | DX: M25.872 Other specified joint disorders, left ankle and foot | CPT/HCPCS: 99203 ==

== ENCOUNTER → 2023-05-19 14:37 | Outpatient (BNVA) | payer MEDICAID, SELFPAY | PROVIDERS: PCP Family Medicine; Visit Provider Podiatrist Foot & Ankle Surgery | DX: M25.872 Other specified joint disorders, left ankle and foot (principal); S99.922D Unspecified injury of left foot, subsequent encounter; X58.XXXD Exposure to other specified factors, subsequent encounter | CPT/HCPCS: 73630; 99213 ==

== ENCOUNTER → 2023-05-31 12:36 | Outpatient (BNVA) | payer MEDICAID, SELFPAY | PROVIDERS: PCP Family Medicine; Visit Provider Registered Nurse Neonatal Intensive Care | DX: Z20.822 Contact with and (suspected) exposure to COVID-19 (principal); J02.9 Acute pharyngitis, unspecified; R50.9 Fever, unspecified | CPT/HCPCS: 87400; 87426; 87880 ==

== ENCOUNTER → 2023-06-01 09:38 | Outpatient (BNVA) | payer MEDICAID, SELFPAY | PROVIDERS: PCP Family Medicine; Visit Provider Nurse Practitioner Family | DX: R50.9 Fever, unspecified (principal) | CPT/HCPCS: 87400 ==